=== PATIENT | female | born 1935 | race Caucasian/White ===

== ENCOUNTER 2018-11-13 12:14 | Emergency (ER) | payer MEDICARE, OTHER ==
[~2018-11-13] VITALS: Ht 165.1 cm; Wt 82.0 kg
--- NOTE | 2018-11-13 12:57 | NUR ---
PT PRESENTS WITH C/O "RACING HEART BEAT, SOB". PT DENIES CHEST PAIN, BUT STATES SHE HAS BACK PAIN AND RIGHT SHOULDER PAIN. PT ON MONITOR, VSS. NAD.
[2018-11-13] MEDS ORDERED: ALBUTEROL/IPRATROPIUM 2.5MG/0.5MG, 3 ML NPPB SCH (13:00)
[2018-11-13] MEDS ORDERED: ALBUTEROL/IPRATROPIUM 2.5MG/0.5MG, 3 ML ONE (13:01)
[2018-11-13 13:10] LABS: BASOPHILS # (AUTO) 0.07 x10^3/uL (0-0.1); BASOPHILS % (AUTO) 1 % (0-1); EOSINOPHILS # (AUTO) 0.08 x10^3/uL (0-0.4); EOSINOPHILS % (AUTO) 1 % (1-7); LYMPHOCYTES # (AUTO) 0.72 x10^3/uL (1-3.4); LYMPHOCYTES % (AUTO) 5 % (22-44); MD NO; MEAN CORPUSCULAR HEMOGLOBIN 26.7 pg (27.0-34.8); MEAN CORPUSCULAR HGB CONC 32.5 g/dL (32.4-35.8); MEAN PLATELET VOLUME 7.8 fL (7.4-10.4); MONOCYTES # (AUTO) 0.45 x10^3/uL (0.2-0.8); MONOCYTES % (AUTO) 3 % (2-9); NEUTROPHILS # (AUTO) 12.62 x10^3/uL (1.8-6.8); NEUTROPHILS % (AUTO) 91 % (42-75); PLATELET COUNT 250 x10^3/uL (130-400); RED BLOOD COUNT 4.76 x10^6/uL (3.82-5.3); RED CELL DISTRIBUTION WIDTH 14.8 % (9.6-15.2)
[2018-11-13 13:22] LABS: ALBUMIN 3.6 g/dL (3.4-5.0); ANION GAP 8 mmol/L (5-15); CALCIUM 9.1 mg/dL (8.5-10.1); CHLORIDE 107 mmol/L (98-107); CREATININE 0.91 mg/dL (0.55-1.02)
[2018-11-13 13:26] LABS: TROPONIN I < 0.015 ng/mL (0.000-0.045)
--- NOTE | 2018-11-13 13:26 | NUR ---
PT ALSO REPORT SHE HAS HAD A COUGH FOR "ABOUT A WEEK".
--- NOTE | 2018-11-13 14:26 | NUR ---
Patient is resting comfortably in bed. Vital Signs within normal limits. Pt denies needs at this time. at bedside.
[2018-11-13 14:57] VITALS: BP 144/70
--- NOTE | 2018-11-13 14:57 | NUR ---
POC AND DISCHARGE EXPLAINED TO PT AND THEY VERBALIZED UNDERSTANDING. NO IV. VSS. NAD. PT STATES SHE "FEELS READY TO GO HOME".
== END 2018-11-13 15:15 | disposition home or self-care (01) ==
LOC: ED 15:10
DX: J45.21 Mild intermittent asthma with (acute) exacerbation (principal)
CPT/HCPCS: 36415; 71045; 80048; 82040; 83880; 84484; 85025; 93005; 99284; J7512

== ENCOUNTER 2019-05-20 10:46 | Outpatient (CLI) | payer MEDICARE, OTHER ==
[2019-05-20] MEDS ORDERED: ALBU18HF INH (11:19)
[2019-05-20] MEDS ORDERED: LYSI500T25 PO (11:19)
[2019-05-20] MEDS ORDERED: CRAN400C PO (11:19)
[2019-05-20] MEDS ORDERED: PANT40TA3 PO (11:19)
[2019-05-20] MEDS ORDERED: TIOT18CA INH (11:19)
[2019-05-20] MEDS ORDERED: MONT10TA6 PO (11:19)
[2019-05-20] MEDS ORDERED: LISI5TAB7 PO (11:19)
[2019-05-20] MEDS ORDERED: BUDE10.2 INH (11:19)
[2019-05-20] MEDS ORDERED: GLUC1TAB91 PO (11:19)
[2019-05-20] MEDS ORDERED: TRAM50TA2 PO (11:22)
[2019-05-20] MEDS ORDERED: OXYC5CAP2 PO (11:22)
[2019-05-20 12:03] LABS: BASOPHILS # (AUTO) 0.04 x10^3/uL (0-0.1); BASOPHILS % (AUTO) 1 % (0-1); EOSINOPHILS # (AUTO) 0.33 x10^3/uL (0-0.4); EOSINOPHILS % (AUTO) 5 % (1-7); LYMPHOCYTES # (AUTO) 1.56 x10^3/uL (1-3.4); LYMPHOCYTES % (AUTO) 22 % (22-44); MD NO; MEAN CORPUSCULAR HEMOGLOBIN 25.1 pg (27.0-34.8); MEAN CORPUSCULAR HGB CONC 32.4 g/dL (32.4-35.8); MEAN CORPUSCULAR VOLUME 77.5 fL (80-100); MEAN PLATELET VOLUME 8.4 fL (7.4-10.4); MONOCYTES % (AUTO) 10 % (2-9); NEUTROPHILS # (AUTO) 4.36 x10^3/uL (1.8-6.8); NEUTROPHILS % (AUTO) 62 % (42-75); PLATELET COUNT 254 x10^3/uL (130-400); RED BLOOD COUNT 4.71 x10^6/uL (3.82-5.3); RED CELL DISTRIBUTION WIDTH 15.4 % (9.6-15.2)
[2019-05-20 12:14] LABS: CHLORIDE 112 mmol/L (98-107)
[2019-05-20 12:21] LABS: ALANINE AMINOTRANSFERASE 20 U/L (12-78); ALBUMIN 3.5 g/dL (3.4-5.0); ALKALINE PHOSPHATASE 69 U/L (45-117); ANION GAP 5 mmol/L (5-15); BILIRUBIN,TOTAL 0.4 mg/dL (0.2-1.0); CALCIUM 8.6 mg/dL (8.5-10.1); CREATININE 0.99 mg/dL (0.55-1.02); TOTAL PROTEIN 6.6 g/dL (6.4-8.2)
== END 2019-05-20 23:59 | disposition home or self-care (01) ==
LOC: STAR 10:46
PROVIDERS: ATTEND Orthopaedic Surgery
DX: Z01.818 Encounter for other preprocedural examination (principal); M17.11 Unilateral primary osteoarthritis, right knee
CPT/HCPCS: 36415; 80053; 85025; 87081; 87147; 93005

== ENCOUNTER 2019-05-26 08:37 | Observation (INO) | payer MEDICARE, OTHER ==
[~2019-05-26] VITALS: Ht 165.1 cm; Wt 82.0 kg
[~2019-05-26 08:37] MED LIST: ALBU18HF INH; BUDE10.2 INH; CRAN400C PO; GLUC1TAB91 PO; LISI5TAB7 PO; LYSI500T25 PO; MONT10TA6 PO; OXYC5CAP2 PO; PANT40TA3 PO; TIOT18CA INH; TRAM50TA2 PO
[2019-05-26] MEDS ORDERED: LACTATED RINGERS 1,000 ML IV SCH (08:47)
[2019-05-26] MEDS ORDERED: EPINEPHRINE 1 MG/ML, 1ML ONE (09:50)
[2019-05-26] MEDS ORDERED: KETOROLAC 60 MG/2 ML ONE (09:50)
[2019-05-26] MEDS ORDERED: TRANEXAMIC ACID 100 MG/ML, 10ML ONE (09:50)
[2019-05-26] MEDS ORDERED: VANCOMYCIN 1,000 MG ONE (09:50)
[2019-05-26] MEDS ORDERED: SODIUM CHLORIDE 0.9% 50 ML ONE (09:50)
[2019-05-26] MEDS ORDERED: ROPIvacaine/PF 0.2%, 20 ML ONE ×2 (09:50→10:35)
[2019-05-26] MEDS ORDERED: GABAPENTIN 300 MG CAPSULE PO ONE (10:00)
[2019-05-26] MEDS ORDERED: ACETAMINOPHEN 500 MG TABLET PO ONE (10:00)
[2019-05-26] MEDS ORDERED: ACETAMINOPHEN 500 MG TABLET ONE (10:04)
[2019-05-26] MEDS ORDERED: GABAPENTIN 300 MG CAPSULE ONE (10:04)
[2019-05-26] MEDS ORDERED: FENTANYL PF 250 MCG/5ML ONE (10:13)
[2019-05-26] MEDS ORDERED: CEFAZOLIN 1,000 MG ONE ×2 (11:10)
[2019-05-26] MEDS ORDERED: SUCCINYLCHOLINE 20 MG/ML, 10ML ONE (11:10)
[2019-05-26] MEDS ORDERED: ROCURONIUM 10MG/ML,5ML ONE (11:10)
[2019-05-26] MEDS ORDERED: DEXAMETHASONE 4 MG/ML, 1ML ONE ×2 (11:10)
[2019-05-26] MEDS ORDERED: PROPOFOL 10 MG/ML, 20ML ONE (11:10)
[2019-05-26] MEDS ORDERED: ONDANSETRON 2MG/ML, 2ML ONE ×2 (11:10)
[2019-05-26] MEDS ORDERED: HYDROmorphone 1 MG/ML, 1ML INJ ONE (11:53)
[2019-05-26] MEDS: HYDROmorphone 2 MG/ML, 1ML IVPush PRN ×2 (11:55→12:10)
[2019-05-26] MEDS ORDERED: DIAZEPAM 5 MG/ML, 2ML IVPush PRN (12:00)
[2019-05-26] MEDS ORDERED: PROMETHAZINE 25 MG/ML, 1ML IV PRN (12:00)
[2019-05-26] MEDS ORDERED: FENTANYL PF 100 MCG/2ML IV PRN (12:00)
[2019-05-26] MEDS ORDERED: SENNA/DOCUSATE TABLET PO PRN (12:00)
[2019-05-26] MEDS ORDERED: ONDANSETRON ODT 8 MG PO PRN (12:00)
[2019-05-26] MEDS ORDERED: DIAZEPAM 5 MG TABLET PO PRN (12:00)
[2019-05-26] MEDS ORDERED: HYDROmorphone 1 MG/ML, 1ML INJ IVPush PRN (12:00)
[2019-05-26] MEDS ORDERED: BISACODYL 10 MG SUPP PR PRN (12:00)
[2019-05-26] MEDS ORDERED: ONDANSETRON 4 MG TABLET PO PRN (12:00)
[2019-05-26] MEDS ORDERED: ZOLPIDEM 5MG TABLET PO PRN (12:00)
[2019-05-26] MEDS ORDERED: ALBUTEROL SULFATE 2.5 MG/3 ML NPPB PRN (12:00)
[2019-05-26] MEDS ORDERED: EPHEDRINE 50 MG/ML, 1ML IVPush PRN (12:00)
[2019-05-26] MEDS ORDERED: OXYcodone IR 5MG TABLET PO PRN (12:00)
[2019-05-26] MEDS ORDERED: PROMETHAZINE 12.5 MG SUPP PR PRN ×2 (12:00)
[2019-05-26] MEDS ORDERED: DIPHENHYDRAMINE 50 MG CAPSULE PO PRN (12:00)
[2019-05-26] MEDS ORDERED: ONDANSETRON 2MG/ML, 2ML IV PRN ×2 (12:00)
[2019-05-26] MEDS ORDERED: PROMETHAZINE 25 MG/ML, 1ML IM PRN (12:00)
[2019-05-26] MEDS ORDERED: PSYLLIUM PACKET PO PRN (12:00)
[2019-05-26] MEDS ORDERED: MEPERIDINE/PF 25MG/ML,1ML IVPush PRN (12:00)
[2019-05-26] MEDS ORDERED: MAGNESIUM HYDROXIDE 8%, 30ML UDC PO PRN (12:00)
[2019-05-26] MEDS ORDERED: OXYcodone 5 MG/5 ML ORAL.SOL UDC PO PRN (12:00)
[2019-05-26] MEDS ORDERED: LABETALOL 5MG/ML, 20ML IV PRN (12:00)
[2019-05-26] MEDS ORDERED: ALUMINUM/MAG/SIMETHICONE 30 ML UDC PO PRN (12:00)
[2019-05-26] MEDS: ACETAMINOPHEN 500 MG TABLET PO SCH ×2 (12:00→18:11)
[2019-05-26] MEDS ORDERED: MIDAZOLAM 1 MG/ML, 2ML IV PRN (12:00)
[2019-05-26] MEDS ORDERED: HALOPERIDOL 5 MG/ML IV PRN (12:00)
[2019-05-26] MEDS ORDERED: FENTANYL PF 100 MCG/2ML ONE (12:01)
[2019-05-26] MEDS ORDERED: TRANEXAMIC ACID 1,000 MG in SODIUM CHLORIDE 0.9% 100 ML IVPB ONE (12:10)
[2019-05-26] MEDS ORDERED: hydrALAzine 20 MG/ML, 1ML ONE (12:11)
[2019-05-26] MEDS: hydrALAzine 20 MG/ML, 1ML IV PRN ×2 (12:13→12:40)
[2019-05-26 13:05] VITALS: BP 145/71
[2019-05-26] MEDS ORDERED: ALBUTEROL SULFATE 2.5 MG/3 ML HHN PRN (13:30)
[2019-05-26] MEDS: IPRATROPIUM 0.5 MG/2.5 ML INHA HHN SCH ×2 (14:13→22:22)
[2019-05-26] MEDS: ASPIRIN 81 MG TABLET EC PO SCH ×2 (18:11→20:44)
[2019-05-26] MEDS: FERROUS SULFATE 325 MG TABLET PO SCH (18:11)
[2019-05-26] MEDS: CALCIUM/VITAMIN D3 250-125 TABLET PO SCH ×2 (18:13→18:14)
[2019-05-26] MEDS: CEFAZOLIN PMX 2GM/50ML 50 ML IVPB SCH (18:13)
[2019-05-26 18:47] VITALS: BP 145/73
[2019-05-26] MEDS: D5%-0.45% NACL 1,000 ML IV SCH (19:30)
[2019-05-26] MEDS: PANTOPROZOLE 40MG TABLET PO SCH (20:54)
[2019-05-26] MEDS: KETOROLAC 30 MG/1 ML IV SCH (20:54)
[2019-05-26] MEDS: DOCUSATE 100 MG CAPSULE PO SCH (20:54)
[2019-05-26] MEDS: BUDESONIDE 0.5 MG/2 ML INHA HHN SCH (22:11)
[2019-05-27] VITALS: BP 129/70
[2019-05-27] MEDS: ACETAMINOPHEN 500 MG TABLET PO SCH ×2 (00:18→05:33)
[2019-05-27] MEDS: CEFAZOLIN PMX 2GM/50ML 50 ML IVPB SCH (02:05)
[2019-05-27 04:00] VITALS: BP 118/65
[2019-05-27] MEDS ORDERED: DEXAMETHASONE 4 MG/ML, 1ML IVPush ONE (06:00)
[2019-05-27 06:37] VITALS: BP 129/66
[2019-05-27] MEDS: D5%-0.45% NACL 1,000 ML IV SCH (07:41)
[2019-05-27] MEDS: BUDESONIDE 0.5 MG/2 ML INHA HHN SCH ×2 (08:30→09:00)
[2019-05-27] MEDS ORDERED: LISINOPRIL 5 MG TABLET PO SCH (09:00)
[2019-05-27] MEDS ORDERED: MULTIVITAMINS/MINERALS TABLET PO SCH (09:00)
[2019-05-27] MEDS ORDERED: ASCORBIC ACID 500 MG TABLET PO SCH (09:00)
[2019-05-27] MEDS ORDERED: MONTELUKAST 10 MG TABLET PO SCH (09:00)
[2019-05-27] MEDS: PANTOPROZOLE 40MG TABLET PO SCH (09:23)
[2019-05-27] MEDS: DOCUSATE 100 MG CAPSULE PO SCH (09:23)
[2019-05-27] MEDS: ASPIRIN 81 MG TABLET EC PO SCH (09:23)
[2019-05-27] MEDS: KETOROLAC 30 MG/1 ML IV SCH (09:23)
[2019-05-27] MEDS: CALCIUM/VITAMIN D3 250-125 TABLET PO SCH (09:23)
[2019-05-27] MEDS: FERROUS SULFATE 325 MG TABLET PO SCH (09:23)
[2019-05-27 12:01] VITALS: BP 132/72
[2019-05-27 12:40] VITALS: BP 133/72
== END 2019-05-27 13:22 | disposition home or self-care (01) ==
LOC: OUT 08:37 → ORIP 11:37 → 4NE 12:55 → DCLOUNGE 05-27 13:07
PROVIDERS: ADMIT Orthopaedic Surgery; ATTEND Orthopaedic Surgery
DX: M17.11 Unilateral primary osteoarthritis, right knee (principal); J45.909 Unspecified asthma, uncomplicated; K21.9 Gastro-esophageal reflux disease without esophagitis; Z87.891 Personal history of nicotine dependence; Z88.0 Allergy status to penicillin; Z79.899 Other long term (current) drug therapy
CPT/HCPCS: 27447; 36415; 73560; 85014; 85018; 96365; 96366; 96375; 96376; 97161; 97165; C1713; C1776; G0378; J0171; J0330; J0360; J0690; J1100; J1170; J1885; J2405; J2704; J2795; J3010; J3370; J7120; J7626